=== PATIENT | female | born 2000 | race Caucasian/White ===

== ENCOUNTER 2021-04-11 02:07 | Emergency (ER) | payer OTHER ==
[~2021-04-11] VITALS: Ht 160 cm; Wt 50.4 kg
[2021-04-11] MEDS ORDERED: SPRINTEC1 EACH PO (02:38)
[2021-04-11] MEDS ORDERED: SPIRONOLACTONE25 MG PO (02:40)
[2021-04-11 03:50] LABS: URINE BILIRUBIN NEGATIVE (Negative); URINE BLOOD NEGATIVE (Negative); URINE CLARITY CLEAR; URINE COLOR YELLOW; URINE GLUCOSE-RANDOM NEGATIVE (Negative); URINE KETONES NEGATIVE (Negative); URINE LEUKOCYTES-REFLEX NEGATIVE (Negative); URINE NITRITE-REFLEX NEGATIVE (Negative); URINE PROTEIN NEGATIVE (Negative); URINE SPECIFIC GRAVITY 1.025 (1.005-1.030); URINE UROBILINOGEN 0.2 E.U./dl (0.2-1.0)
[2021-04-11] MEDS ORDERED: ZOFRAN ODT4 MG PO (05:10)
[2021-04-11] MEDS ORDERED: PROTONIX 20 MG20 MG PO (05:10)
[2021-04-11] MEDS ORDERED: CARAFATE 1 GM TA1 GM PO (05:10)
[2021-04-11 05:46] VITALS: BP 120/78
== END 2021-04-11 05:46 | disposition home or self-care (01) ==
LOC: M.ERS 02:07
PROVIDERS: Emergency Medicine
DX: R10.13 Epigastric pain (principal); R10.11 Right upper quadrant pain; R11.0 Nausea; Z90.89 Acquired absence of other organs; Z79.899 Other long term (current) drug therapy

== ENCOUNTER 2021-04-11 14:24 | Inpatient (IN) | payer OTHER ==
[~2021-04-11] VITALS: Ht 160 cm; Wt 50.3 kg
[~2021-04-11 14:24] MED LIST: CARAFATE 1 GM TA1 GM PO; PROTONIX 20 MG20 MG PO; SPIRONOLACTONE25 MG PO; SPRINTEC1 EACH PO; ZOFRAN ODT4 MG PO
[2021-04-11 14:39] VITALS: BP 130/71
[2021-04-11 16:00] LABS: URINE BILIRUBIN NEGATIVE (Negative); URINE BLOOD 2+ (Negative); URINE COLOR YELLOW; URINE GLUCOSE-RANDOM NEGATIVE (Negative); URINE KETONES NEGATIVE (Negative); URINE LEUKOCYTES-REFLEX NEGATIVE (Negative); URINE NITRITE-REFLEX NEGATIVE (Negative); URINE PROTEIN NEGATIVE (Negative); URINE UROBILINOGEN 0.2 E.U./dl (0.2-1.0)
[2021-04-11 16:04] LABS: URINE CLARITY HAZY
[2021-04-11 16:10] LABS: BACTERIA-REFLEX 1-9 Few /HPF (None Seen); CASTS None Seen /LPF (None Seen); CRYSTALS None Seen /LPF (None Seen); SQUAMOUS 4-10 Moderate /LPF (0-3); URINE RBC 0-2 Rare /HPF (0-2); URINE WBC-REFLEX 0-5 Rare /HPF (0-5)
[2021-04-11 17:02] LABS: ABSOLUTE MONOCYTES 0.7 thou/uL (0.0-1.2); ABSOLUTE NEUTROPHILS 7.5 thou/uL (1.6-8.1); BASOPHILS 0.1 %; EOSINOPHILS 0.3 %; HEMATOCRIT 38.5 % (37.0-47.0); HEMOGLOBIN 12.7 gm/dL (12.0-15.0); LYMPHOCYTES 10.6 %; MCH 28.1 pg (26.0-34.0); MCHC 33.1 g/dL (28.0-37.0); MCV 85.1 fL (80.0-100.0); MONOCYTES 7.5 %; MPV 8.5 fl. (7.2-11.1); NUCLEATED RBCS 0 /100WBC; PLATELET COUNT* 267 thou/uL (150-400); POLYS 81.5 %; RBC 4.52 mil/uL (4.20-5.00); RDW-CV 14.7 % (10.5-14.5); WBC 9.3 thou/uL (4.0-11.0)
[2021-04-11 17:13] LABS: CALCIUM 8.5 mg/dL (8.5-10.1); CREATININE 0.7 mg/dL (0.6-1.3); POTASSIUM 3.9 mmol/L (3.5-5.1)
[2021-04-11 17:17] LABS: ALBUMIN 3.5 g/dL (3.4-5.0); TOTAL BILIRUBIN 0.8 mg/dL (<0.1-1.0); TOTAL PROTEIN 7.3 g/dL (6.4-8.2)
[2021-04-11 23:00] VITALS: BP 107/60
[2021-04-12 07:30] VITALS: BP 103/54
[2021-04-12 09:49] LABS: HEMATOCRIT 32.9 % (37.0-47.0); HEMOGLOBIN 10.8 gm/dL (12.0-15.0); MCH 28.4 pg (26.0-34.0); MCHC 32.8 g/dL (28.0-37.0); MCV 86.6 fL (80.0-100.0); MPV 8.8 fl. (7.2-11.1); RBC 3.8 mil/uL (4.20-5.00); RDW-CV 14.3 % (10.5-14.5); WBC 8.3 thou/uL (4.0-11.0)
[2021-04-12 10:02] LABS: ALBUMIN 2.7 g/dL (3.4-5.0); ALKALINE PHOSPHATASE 63 U/L (46-116); ANION GAP 11 mmol/L (7-16); BUN 8 mg/dL (7-18); CALCIUM 7.9 mg/dL (8.5-10.1); CHLORIDE 108 mmol/L (98-107); CHOLESTEROL 114 mg/dL (<200); CO2 19 mmol/L (21-32); CREATININE 0.8 mg/dL (0.6-1.3); GLUCOSE 61 mg/dL (70-99); HDL CHOLESTEROL 45 mg/dL (>40); LDL CHOLESTEROL 57 mg/dL (<100); LIPASE 286 U/L (73-393); POTASSIUM 4.5 mmol/L (3.5-5.1); SGOT 11 U/L (15-37); SGPT 13 U/L (30-65); SODIUM 138 mmol/L (136-145); TC:HDL 2.5 Ratio (Not establshd); TOTAL BILIRUBIN 0.6 mg/dL (<0.1-1.0); TRIGLYCERIDE 60 mg/dL (<150); VLDL 12 mg/dL (<40)
[2021-04-12 10:03] LABS: SERUM ASSESSMENT CL
[2021-04-12 11:37] VITALS: BP 107/61
[2021-04-12 14:44] VITALS: BP 107/61
[2021-04-12 16:00] VITALS: BP 113/54
[2021-04-12 21:00] VITALS: BP 113/67
[2021-04-13 00:45] VITALS: BP 99/57
--- NOTE | 2021-04-13 07:13 | NUR ---
ASSUMED CARES AT 1999. ALERT AND ORIENTED. PLEASANT. MOM AT BEDSIDE. UP AD RODNEY. FENTANYL GIVEN FOR ABD PAIN. ABD TENDER TO TOUCH. PT STATES THAT HASN'T HAD BM IN FEW DAYS. MIRALAX GIVEN. DENIED ANY N/V. IVF NS AT 125 CC/HR. SLEPT OFF AND ON. CALL LIGHT IN REACH AND BED ALARM ON.
[2021-04-13 08:00] VITALS: BP 102/63
[2021-04-13] MEDS ORDERED: TRAMADOL 50 MG50 MG PO (09:22)
[2021-04-13 14:16] VITALS: BP 102/63
--- NOTE | 2021-04-13 15:43 | NUR ---
CM ASSESSMENT: PT A&O, INDEPENDENT WITH ADL'S AND ACTIVE. PT USES 0 DME. 0 CM D/C PLANNING NEEDS ANTICIPATED. PLAN FOR PT TO D/C HOME WITH SELF-CARE. CM WILL REMAIN AVAILABLE TO ASSIST AND FOLLOW NEEDED.
--- NOTE | 2021-04-13 16:20 | NUR ---
I ASSUMED CARE OF THE PATIENT AT 0700. SHE IS ALERT AND ORIENTED X4 AND IS UP AD RODNEY. BED IS THE LOW LOCKED POSITION AND MEJIA IS IN REACH. MOTHER IS AT THE BEDSIDE. PATIENT NEEDS ARE MET DURING HOURLY ROUNDING. SCRIPTS ARE AT PHARMACY AND DISCHARGE IS GIVEN TO PATIENT AND MOTHER. WHEELED TO PRIVATE CAR AT 1550.
== END 2021-04-13 15:50 | disposition home or self-care (01) | DRG 439 ==
LOC: M.ERS 14:24 → M.TBA-ER 18:49 → M.2W 18:49
PROVIDERS: Internal Medicine; Physician Assistant; ADMIT Internal Medicine; ATTEND Internal Medicine
DX: K85.90 Acute pancreatitis without necrosis or infection, unspecified (principal); E44.1 Mild protein-calorie malnutrition; K56.7 Ileus, unspecified; Q60.0 Renal agenesis, unilateral; Z68.1 Body mass index [BMI] 19.9 or less, adult; R31.9 Hematuria, unspecified; Z20.822 Contact with and (suspected) exposure to COVID-19; K52.9 Noninfective gastroenteritis and colitis, unspecified; Z79.899 Other long term (current) drug therapy